=== PATIENT | female | born 1990 | race Hispanic/Latino ===

== ENCOUNTER → 2018-02-20 | Outpatient (CLI) | payer OTHER | LOC: M RAD 18:02 | DX: Z34.81 Encounter for supervision of other normal pregnancy, first trimester (principal) | CPT/HCPCS: 76801 ==

== ENCOUNTER 2018-06-10 20:27 | Outpatient (CLI) | payer OTHER ==
[2018-06-10] MEDS: LR 1,000 ML IV ×2 (21:33→22:27)
[2018-06-10] MEDS: ONDANSETRON 4MG/2ML VIAL (J2405) IV (21:34)
== END 2018-06-10 22:56 | disposition home or self-care (01) ==
LOC: M LDO 20:27
DX: O99.89 Other specified diseases and conditions complicating pregnancy, childbirth and the puerperium (principal); Z3A.21 21 weeks gestation of pregnancy; R11.2 Nausea with vomiting, unspecified; R19.7 Diarrhea, unspecified
CPT/HCPCS: J2405

== ENCOUNTER 2018-10-15 02:48 | Inpatient (IN) | payer OTHER ==
[~2018-10-15] VITALS: Ht 170.2 cm; Wt 71.0 kg
[2018-10-15] VITALS (37 sets, daily range): BP systolic 96–129; BP diastolic 51–87
[~2018-10-15 02:48] MED LIST: PRENTAB9 PO
[2018-10-15] MEDS ORDERED: LACTATED RINGER'S 1000 ML IV STA (03:24)
[2018-10-15 03:55] LABS: BASO % 0.3 % (0.0-1.0); EOS # 0.1 10^3/uL (0.0-0.50); HEMATOCRIT 40.8 % (36.0-47.0); LYMPH # 1.4 10^3/uL (1.5-6.5); LYMPH % 17.8 % (24.0-44.0); MEAN CORPUSCULAR HEMOGLOBIN 30.5 pg (27.0-33.0); MEAN CORPUSCULAR HGB CONC 34.3 g/dl (32.0-36.5); MEAN CORPUSCULAR VOLUME 88.9 fl (80.0-96.0); MONO # 0.3 10^3/uL (0.0-0.8); MONO % 4.4 % (0.0-5.0); NEUTROPHILS # 5.9 10^3/uL (1.8-7.7); PLATELET COUNT, AUTOMATED 134 10^3/uL (150-450); RED BLOOD COUNT 4.59 10^6/uL (4.00-5.40); WHITE BLOOD COUNT 7.7 10^3/uL (4.0-10.0)
[2018-10-15] MEDS ORDERED: BUTORPHANOL 2 MG/ML INJ (J0595) IV ONE (04:00)
--- NOTE | 2018-10-15 04:12 | HPEPDOC ---
Obstetrical History & Physical General Date of Admission Oct 15, 2018 at 03:36 History of Present Illness 28 yo at 39+5 weeks by 5+6 week US on 20Feb2018 presents to L&D for regu lar, painful, worsening contractions. She was seen about 10 hours ago for contractions and was only FT dilated. She returned with excruciating contraction pain and has been very tearful. She denies any vaginal bleeding or leakage of fluid. She endorses excellent movement. has been uncomplicated. 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 Past Medical History Medical History Mild anemia Surgical History: Dilatation and Curettage Family History Significant Family History: No pertinent family hx Family History Non contributory Social History Marital Status: Family situation: Spouse/partner home Psychosocial History: No pertinent psych hx * Smoker: non-smoker Alcohol: Denies Drugs: denies Imunizations Tdap status: current Influenza Status: current Allergies Coded Allergies: No Known Allergies (Unverified , 06/10/18) Medications Scheduled Multivitamins/ ( 27-0.8 mg) 1 Tab Tab, 1 TAB PO DAILY Physical Examination Physical Examination GENERAL: Alert and oriented times three. Tearful and grimacing in pain. ABDOMEN: Gravid and non-tender to touch. FETUS: Is vertex (VTX) by sterile vaginal examination EXTREMITIES: No edema. Bedside TAUS - SIUP in cephalic presentation. Laboratory Data 24H LABS Laboratory Tests 2 10/15/18 03:46: CBC/BMP Urine Culture: No Growth Pertinent Laboratoy Data Blood Type: O+ RBC Antibody Screen: Negative HIV: Negative Hepatitis B: Negative Hepatitis C: Unknown Rapid Plasma Reagin: Nonreactive Rubella: Immune Varicella: Nonreactive Chlamydia/Gonorrhea: Negative Group B Streptococcus: Negative Quad Screen Test: Unknown Cystic Fibrosis: Negative Glucose Tolerance Test: 74 Anatomy Ultrasound Placenta Location: Posterior Normal Anatomy: Yes Placenta Previa: No (Initial US placenta was 1.5cm from os. Repeat US placenta had migrated to 7.5cm from os.) Steroid Therapy Steroid Therapy: No Vaginal Examination Dilation: 1cm Effacement: 80% Station: -2 Cervical Consistency: Soft Cervical Position: Middle Presentation: Cephalic presentation Position: Vertex (occiput) Assessment Heart Rate (FHR): 140 Variability: Moderate Accelerations: Positive Decelerations: Early Tocometer Contractions: Yes Frequency: regular Duration: greater than 60 seconds Strength: palpated as moderate Assessment/Plan Assessment 28 yo at 39+5 weeks admitted for early labor. Uncomplicated . Plan Plan for admission for expectant management of early labor and pain control. Cervix has changed as compared to last exam, though change has been minimal. Initial minimal variability on tracing along with early decels noted. This is conjunction with her out of control pain is the reason for her admission. FHR variability improved and there were accels after her cervical exam and IV fluid bolus. Clear liquid diet for now. GBS negative. Will administer IV analgesia per patient request until she is ready for an epidural. Anticipate . All patient questions answered. DO KYA Gotti CHRISTOPHER J. DO Oct 15, 2018 04:12
[2018-10-15] MEDS ORDERED: TYLE1TAB5 PO (05:09)
--- NOTE | 2018-10-15 07:58 | IPNPDOC ---
Text Note Date of Service The patient was seen on 10/15/18. NOTE SBAR from Dr Wilson at 730 NST Cat 1 currently Cx 3/80/-2, signif change from 1 cm Epidural OK Recheck in 3-4 hrs, sooner prn Sessions VS,Pola, I+O VS, Pola, I+O Laboratory Tests 10/15/18 03:46 Red Blood Count 4.59, Mean Corpuscular Volume 88.9, Mean Corpuscular Hemoglobin 30.5, Mean Corpuscular Hemoglobin Concent 34.3, Red Cell Distribution Width 15.6 H, Neutrophils (%) (Auto) 76.0 H, Lymphocytes (%) (Auto) 17.8 L, Monocytes (%) (Auto) 4.4, Eosinophils (%) (Auto) 1.0, Basophils (%) (Auto) 0.3, Neutrophils # (Auto) 5.9, Lymphocytes # (Auto) 1.4 L, Monocytes # (Auto) 0.3, Eosinophils # (Auto) 0.1, Basophils # (Auto) 0.0 Vital Signs Date Time Temp Pulse Resp B/P (MAP) Pulse Ox O2 Delivery O2 Flow Rate FiO2 10/15/18 07:42 97.8 65 18 104/51 (68) Room Air I&O- Last 24 Hours up to 6 AM 10/15/18 06:00 Intake Total 1000 ml Output Total 175 ml Balance 825 ml SESSIONS,ISMAEL Ardon MD Oct 15, 2018 07:58
[2018-10-15] MEDS ORDERED: FENTANYL 2MCG/ML ROPIVACAINE 0.2% IN 0.9% NACL 100ML IVBAG As Ordered ONE (08:22)
[2018-10-15] MEDS: FENTANYL/ROPIVACAINE/NACL BAG 100 ML EPIDURAL SCH ×2 (09:00→15:43)
[2018-10-15] MEDS ORDERED: EPIDURAL/PCA KEYS XX PRN (09:45)
[2018-10-15] MEDS ORDERED: ONDANSETRON 4MG/2ML VIAL (J2405) IV PRN (09:45)
[2018-10-15] MEDS ORDERED: NALOXONE INJ 0.4 MG/1 ML VIAL (J2310) IV PRN (09:45)
[2018-10-15] MEDS ORDERED: LACTATED RINGER'S 1000 ML IV PRN (09:45)
[2018-10-15] MEDS ORDERED: diphenhydrAMINE INJ 50MG/ML VIAL (J1200) IV PRN (09:45)
[2018-10-15] MEDS ORDERED: ePHEDrine SULFATE 25 MG/5 ML(5MG/ML) SYRINGE IV PRN (09:45)
[2018-10-15] MEDS ORDERED: EPIDURAL COMMENT XX SCH (09:45)
[2018-10-15] MEDS ORDERED: REFRIGERATOR IV KEYS XX PRN (09:45)
[2018-10-15] MEDS: LR 1,000 ML IV SCH ×2 (11:24→13:01)
[2018-10-15] MEDS ORDERED: LR 1,000 ML IV SCH (12:42)
[2018-10-15] MEDS ORDERED: OXYTOCIN DRIP 30 UNITS in APPROPRIATE DILUENT 1 EA IV SCH ×2 (12:45→21:40)
--- NOTE | 2018-10-15 12:49 | IPNPDOC ---
Text Note Date of Service The patient was seen on 10/15/18. NOTE NST Cat 2, no decels, minimal variability off and on, just received 5 mg ephed rine for significant BP change (not profound hypotension, just a change) which showed immediate variability improvement. Cx /-2/vtx ballotable Will start pitocin to better engage the vtx Recheck in 2-3 hrs, sooner prn Sessions VS,Pola, I+O VS, Pola I+O Laboratory Tests 10/15/18 03:46 Red Blood Count 4.59, Mean Corpuscular Volume 88.9, Mean Corpuscular Hemoglobin 30.5, Mean Corpuscular Hemoglobin Concent 34.3, Red Cell Distribution Width 15.6 H, Neutrophils (%) (Auto) 76.0 H, Lymphocytes (%) (Auto) 17.8 L, Monocytes (%) (Auto) 4.4, Eosinophils (%) (Auto) 1.0, Basophils (%) (Auto) 0.3, Neutrophils # (Auto) 5.9, Lymphocytes # (Auto) 1.4 L, Monocytes # (Auto) 0.3, Eosinophils # (Auto) 0.1, Basophils # (Auto) 0.0 Vital Signs Date Time Temp Pulse Resp B/P (MAP) Pulse Ox O2 Delivery O2 Flow Rate FiO2 10/15/18 07:42 97.8 65 18 104/51 (68) Room Air I&O- Last 24 Hours up to 6 AM 10/15/18 05:59 Intake Total 1000 ml Output Total 175 ml Balance 825 ml SESSIONS,ISMAEL Ardon MD Oct 15, 2018 12:49
--- NOTE | 2018-10-15 15:41 | IPNPDOC ---
Text Note Date of Service The patient was seen on 10/15/18. NOTE NST Cat 2, intermittent variable decels, mod variability Pit at 8 mu/min now, SROM ~1 hr ago Cx 5//-2/vtx now well applied, signif change from prior Recheck in ~2 hrs, sooner prn. If no signif change will place IUPC. Sessions VS,Pola, I+O VS, Pola I+O Laboratory Tests 10/15/18 03:46 Red Blood Count 4.59, Mean Corpuscular Volume 88.9, Mean Corpuscular Hemoglobin 30.5, Mean Corpuscular Hemoglobin Concent 34.3, Red Cell Distribution Width 15.6 H, Neutrophils (%) (Auto) 76.0 H, Lymphocytes (%) (Auto) 17.8 L, Monocytes (%) (Auto) 4.4, Eosinophils (%) (Auto) 1.0, Basophils (%) (Auto) 0.3, Neutrophils # (Auto) 5.9, Lymphocytes # (Auto) 1.4 L, Monocytes # (Auto) 0.3, Eosinophils # (Auto) 0.1, Basophils # (Auto) 0.0 Vital Signs Date Time Temp Pulse Resp B/P (MAP) Pulse Ox O2 Delivery O2 Flow Rate FiO2 10/15/18 13:10 97.9 84 18 112/55 (74) 10/15/18 07:42 Room Air I&O- Last 24 Hours up to 6 AM 10/15/18 06:00 Intake Total 1000 ml Output Total 175 ml Balance 825 ml SESSIONS,ISMAEL Ardon MD Oct 15, 2018 15:41
--- NOTE | 2018-10-15 17:42 | IPNPDOC ---
Text Note Date of Service The patient was seen on 10/15/18. NOTE FHT Cat 1 Cx /-1, vtx with signif decent and more pressure on the cx Doing well Recheck in 2 hrs, sooner prn Sessions VS,Pola, I+O VSPola I+O Laboratory Tests 10/15/18 03:46 Red Blood Count 4.59, Mean Corpuscular Volume 88.9, Mean Corpuscular Hemoglobin 30.5, Mean Corpuscular Hemoglobin Concent 34.3, Red Cell Distribution Width 15.6 H, Neutrophils (%) (Auto) 76.0 H, Lymphocytes (%) (Auto) 17.8 L, Monocytes (%) (Auto) 4.4, Eosinophils (%) (Auto) 1.0, Basophils (%) (Auto) 0.3, Neutrophils # (Auto) 5.9, Lymphocytes # (Auto) 1.4 L, Monocytes # (Auto) 0.3, Eosinophils # (Auto) 0.1, Basophils # (Auto) 0.0 Vital Signs Date Time Temp Pulse Resp B/P (MAP) Pulse Ox O2 Delivery O2 Flow Rate FiO2 10/15/18 13:10 97.9 84 18 112/55 (74) 10/15/18 07:42 Room Air I&O- Last 24 Hours up to 6 AM 10/15/18 06:00 Intake Total 1000 ml Output Total 175 ml Balance 825 ml SESSIONS,ISMAEL Ardon MD Oct 15, 2018 17:42
--- NOTE | 2018-10-15 19:31 | IPNPDOC ---
Text Note Date of Service The patient was seen on 10/15/18. NOTE FHT Cat 2 min to mod goyo, accels, early decels most ctx's Cx 9/c/0 to +1 Doing well 1-2 hrs will check, sooner prn Sessions VS,Pola, I+O VS, Pola, I+O Laboratory Tests 10/15/18 03:46 Red Blood Count 4.59, Mean Corpuscular Volume 88.9, Mean Corpuscular Hemoglobin 30.5, Mean Corpuscular Hemoglobin Concent 34.3, Red Cell Distribution Width 15.6 H, Neutrophils (%) (Auto) 76.0 H, Lymphocytes (%) (Auto) 17.8 L, Monocytes (%) (Auto) 4.4, Eosinophils (%) (Auto) 1.0, Basophils (%) (Auto) 0.3, Neutrophils # (Auto) 5.9, Lymphocytes # (Auto) 1.4 L, Monocytes # (Auto) 0.3, Eosinophils # (Auto) 0.1, Basophils # (Auto) 0.0 Vital Signs Date Time Temp Pulse Resp B/P (MAP) Pulse Ox O2 Delivery O2 Flow Rate FiO2 10/15/18 17:49 98.0 95 18 101/62 (75) 10/15/18 11:09 Room Air I&O- Last 24 Hours up to 6 AM 10/15/18 06:00 Intake Total 1000 ml Output Total 175 ml Balance 825 ml RACHNA,ISMAEL Ardon MD Oct 15, 2018 19:31
[2018-10-15] MEDS ORDERED: ACETAMINOPHEN 325 MG TAB As Ordered ONE (20:47)
[2018-10-15] MEDS ORDERED: ACETAMINOPHEN TAB 650MG DOSE (2X325MG) PO PRN (21:45)
[2018-10-15] MEDS ORDERED: DIBUCAINE 1% OINTMENT 30GM TOP PRN (21:45)
[2018-10-15] MEDS ORDERED: METOCLOPRAMIDE INJ 10MG/2ML VIAL (J2765) IV PRN (21:45)
[2018-10-15] MEDS ORDERED: MEASLES,MUMPS,RUBELLA VACCINE INJ (MMR-II) (90707) SC SCH (21:45)
[2018-10-15] MEDS ORDERED: RHOGAM 300 MCG (1500 IU) INJ (J2790) IM SCH (21:45)
--- NOTE | 2018-10-15 21:47 | DNPDOC ---
[facility] Delivery Note Delivery Note DATE OF DELIVERY: [id number]@2126 PREDELIVERY DIAGNOSIS: 39 5/7 weeks' gestation and labor. POST DELIVERY DIAGNOSIS: Delivered. PROCEDURE: Spontaneous vaginal delivery ROUTE DELIVERY MANAGER: Dr. rBiscoe ANESTHESIA: epidural ESTIMATED BLOOD LOSS: 200 mL. FINDINGS: 6 pound 7 ounce female , Score 7/9 DELIVERY SUMMARY: Great effort. No delay of the vtx or ant/post shoulders. To abdomen in good shape. Cord C/C by FOB. Cord blood. Placenta intact, fundus firm, pit going 999. Small inner left vaginal lac not bleeding. Intact cx and per. Uncomplicated. Sessions MD BRISCOE,ISMAEL Ardon MD Oct 15, 2018 21:47
[2018-10-16] VITALS: BP 111/61
[2018-10-16] MEDS: IBUPROFEN 800 MG TAB PO PRN ×2 (00:58→09:05)
[2018-10-16 05:51] VITALS: BP 115/59
--- NOTE | 2018-10-16 07:53 | IPNPDOC ---
Text Note Date of Service The patient was seen on 10/16/18. NOTE PPD1 States feeling well, pain controlled with prescribed meds. Baby bonding and feeding well. No heavy VB. Lochia slowing. Ambulating and voiding well. Tolerating PO without issues. VSSAF NAD A&O RRR CTAB LE no C/C/E Ut at U-2, firm a/p: Doing well. Cont routine care. D/C likely tomorrow. Sessions Pola BOND, I+O VSPola I+O Vital Signs Date Time Temp Pulse Resp B/P (MAP) Pulse Ox O2 Delivery O2 Flow Rate FiO2 10/16/18 05:51 97.5 69 18 115/59 (77) Room Air 10/16/18 00:00 99 I&O- Last 24 Hours up to 6 AM 10/16/18 06:00 Intake Total 2300 ml Output Total 1325 ml Balance 975 ml ISMAEL BRISCOE MD Oct 16, 2018 07:53
[2018-10-16] MEDS: DOCUSATE SODIUM 100 MG CAP PO SCH ×2 (07:54→21:16)
[2018-10-16] MEDS: PRENATAL VITAMINS CHEWABLE TABLET PO SCH (07:54)
[2018-10-16 18:05] VITALS: BP 109/56
[2018-10-17 05:46] VITALS: BP 109/59
[2018-10-17] MEDS: PRENATAL VITAMINS CHEWABLE TABLET PO SCH (07:20)
[2018-10-17] MEDS: DOCUSATE SODIUM 100 MG CAP PO SCH (07:20)
--- NOTE | 2018-10-17 07:26 | IPNPDOC ---
Progress Note Date of Service: Oct 17, 2018 Day#: 2 Progress Note PPD 2 SUBJECT: Aubrie is a 28yo [id number] s/p uncomplicated on 10/15/18 after presenting in active labor, doing well day #2. She has been ambulating, voiding spontaneously without issue and tolerating regular diet. Breast feeding without issue. Reports lochia is like a normal period. Denies f/c/n/v/CP/SOB. OBJECTIVE: VITAL SIGNS: Within normal limits, afebrile. Alert and oriented times three. Abdomen: Fundus firm at U-2. Soft, NTTP. Extremities: no pain with palpation of calves ASSESSMENT: Aubrie is a 28yo [id number] s/p uncomplicated on 10/15/18 after presenting in active labor, doing well day #2. Vitals within normal limits, afebrile, hemodynamically stable with no evidence of infection. PLAN: 1. Discharge to home today. 2. Tylenol and Motrin for pain. 3. Encourage breast feeding and ambulation. 4. Interested in Mirena for contraception 5. Routine PP visit in 6 weeks in clinic. 6. Discussed return precautions at length. Dr. Sandi Jorgensen MD VS, I&O, 24H, Fishbone Vital Signs/I&O Vital Signs Date Time Temp Pulse Resp B/P (MAP) Pulse Ox O2 Delivery O2 Flow Rate FiO2 10/17/18 05:46 98.8 76 18 109/59 (76) 10/16/18 05:51 Room Air 10/16/18 00:00 99 I&O- Last 24 Hours up to 6 AM 10/17/18 05:59 Intake Total 360 ml Balance 360 ml Sandi Jorgensen MD Oct 17, 2018 07:26
[2018-10-17] MEDS ORDERED: IBUP-1114 PO (08:30)
== END 2018-10-17 11:55 | disposition home or self-care (01) | DRG 807 ==
LOC: M LDO 02:48 → M LDI 03:36 → M OBS 23:50
PROVIDERS: ADMIT Obstetrics & Gynecology; ATTEND Obstetrics & Gynecology
PROC: 10E0XZZ Delivery of Products of Conception, External Approach (ICD-10-PCS; principal; 2018-10-15)
DX: O70.0 First degree perineal laceration during delivery (principal); Z37.0 Single live birth; Z3A.39 39 weeks gestation of pregnancy

== ENCOUNTER → 2019-07-13 | Outpatient (REF) | payer OTHER ==
[~2019-07-13] MED LIST changes: +IBUP-1114 PO; +TYLE1TAB5 PO
== END ==
LOC: M SFHCLERA 11:12
PROVIDERS: ATTEND Nurse Practitioner Family
DX: J02.9 Acute pharyngitis, unspecified (principal)

== ENCOUNTER 2020-09-09 21:14 | Emergency (ER) | payer OTHER ==
[~2020-09-09] VITALS: Ht 170.2 cm; Wt 58.2 kg
[2020-09-09] MEDS ORDERED: LIDOCAINE W/EPINEPHRINE 1% 20ML VIAL As Ordered ONE (22:22)
[2020-09-09] MEDS ORDERED: BOOSTRIX/ADACEL VACCINE (DIPHTH/PERTUSS/ACELL/TETANUS) 0.5ML SYR IM ONE (22:30)
[2020-09-09] MEDS ORDERED: LIDOCAINE W/EPINEPHRINE 1% 20ML VIAL SC ONE (22:30)
[2020-09-09] MEDS ORDERED: KEFL500C17 PO (23:06)
[2020-09-09 23:23] VITALS: BP 134/62
== END 2020-09-09 23:25 | disposition home or self-care (01) ==
LOC: M ED 21:14
DX: S91.011A Laceration without foreign body, right ankle, initial encounter (principal); W22.8XXA Striking against or struck by other objects, initial encounter; Y92.019 Unspecified place in single-family (private) house as the place of occurrence of the external cause; Y93.9 Activity, unspecified; F90.9 Attention-deficit hyperactivity disorder, unspecified type